=== PATIENT | male | born 1980 | race Caucasian/White ===

== ENCOUNTER 2019-04-06 18:17 | Emergency (ER) | payer MEDICAID ==
--- NOTE | 2019-04-06 18:35 | NUR ---
CALLED FOR TRIAGE X 2 . NOT IN WAITING ROOM.
== END 2019-04-06 18:35 | disposition left against medical advice (07) ==
LOC: ER 18:19
DX: Z53.21 Procedure and treatment not carried out due to patient leaving prior to being seen by health care provider (principal)